=== PATIENT | female | born 1960 | race Caucasian/White ===

== ENCOUNTER 2019-06-21 11:34 | Outpatient (CLI) | payer MEDICARE, MEDICAID, SELFPAY ==
--- NOTE | 2019-06-21 | XR_ITS ---
WS: [id number] SHOULDER LEFT TECHNIQUE: 3 views of the left shoulder CLINICAL INFORMATION: LT SHOULDER PAIN COMPARISON: None. FINDINGS: Normal acromioclavicular joint. Normal glenohumeral joint. Acromion is normal in appearance. Normal g lenoid. No evidence of acute fracture dislocation. XR/XR shoulder LT min 2V* [id number] IMPRESSION: Normal left shoulder.
--- NOTE | 2019-06-21 | XR_ITS ---
WS: [id number] CERVICAL SPINE TECHNIQUE: 3 views of the cervical spine CLINICAL INFORMATION: CERVICAL RADICULOPATHY COMPARISON: None. FINDINGS: Straightening of the normal cervical lordosis with slight reversal. Normal C1-C2 articulation. No ins tability on flexion-extension. Normal prevertebral soft tissues. Normal dens. XR/XR cervical spine 4-5V [id number] IMPRESSION: Straightening of the normal cervical lordosis. No instability.
== END 2019-06-21 11:35 | disposition home or self-care (01) ==
LOC: RADWPI 12:12
PROVIDERS: Family Provider Family Medicine; PCP Family Medicine; Visit Provider Family Medicine
DX: Z76.89 Persons encountering health services in other specified circumstances (principal)

== ENCOUNTER → 2019-07-05 08:37 | Outpatient (BNVA) | payer MEDICARE, MEDICAID, SELFPAY | PROVIDERS: Family Provider Family Medicine; PCP Family Medicine; Visit Provider Nurse Practitioner | DX: F43.12 Post-traumatic stress disorder, chronic (principal); F17.218 Nicotine dependence, cigarettes, with other nicotine-induced disorders; G47.33 Obstructive sleep apnea (adult) (pediatric) | CPT/HCPCS: 99213 ==

== ENCOUNTER → 2019-12-12 08:01 | Outpatient (BNVA) | payer MEDICARE, MEDICAID, SELFPAY | PROVIDERS: Family Provider Family Medicine; PCP Family Medicine; Visit Provider Nurse Practitioner | DX: F43.12 Post-traumatic stress disorder, chronic (principal); F17.218 Nicotine dependence, cigarettes, with other nicotine-induced disorders; G47.33 Obstructive sleep apnea (adult) (pediatric); F41.1 Generalized anxiety disorder | CPT/HCPCS: 99213 ==

== ENCOUNTER → 2020-01-22 14:27 | Outpatient (BNVA) | payer OTHER, SELFPAY | PROVIDERS: Family Provider Family Medicine; PCP Family Medicine; Visit Provider Nurse Practitioner | DX: F43.12 Post-traumatic stress disorder, chronic (principal) | CPT/HCPCS: 80061; 83036 ==

== ENCOUNTER → 2020-03-08 07:38 | Outpatient (BNVA) | payer MEDICARE, MEDICAID, SELFPAY ==
[2020-01-23 13:43] VITALS: BP 140/82; BMI 44.9
== END ==
PROVIDERS: Family Provider Family Medicine; PCP Family Medicine; Visit Provider Nurse Practitioner
DX: F43.12 Post-traumatic stress disorder, chronic (principal); F17.218 Nicotine dependence, cigarettes, with other nicotine-induced disorders
CPT/HCPCS: 99213

== ENCOUNTER → 2020-06-04 08:07 | Outpatient (BNVA) | payer MEDICARE, SELFPAY ==
[2020-01-23 13:43] VITALS: BP 140/82; BMI 44.9
== END ==
PROVIDERS: Family Provider Family Medicine; PCP Family Medicine; Visit Provider Nurse Practitioner
DX: F43.12 Post-traumatic stress disorder, chronic (principal); F17.218 Nicotine dependence, cigarettes, with other nicotine-induced disorders
CPT/HCPCS: 99213

== ENCOUNTER 2020-07-24 10:41 | Outpatient (CLI) | payer MEDICARE, MEDICAID, SELFPAY ==
[2020-01-23 13:43] VITALS: BP 140/82; BMI 44.9
--- NOTE | 2020-07-24 11:30 | XR_ITS ---
WS: [id number] LEFT SHOULDER: 3 VIEW(S) TECHNIQUE: Internal and external rotation with Y view. HISTORY: chronic left shoulder pain COMPARISON: 06/21/2019 No fracture or dislocation or soft tissue abnormality. Mild degenerative changes at the AC joint. Irregularity along the acromial surface of the AC joint. XR/XR shoulder LT min 2V* [id number] IMPRESSION: Mild AC joint arthritis.
== END 2020-07-24 10:42 | disposition home or self-care (01) ==
LOC: RADWPI 10:46
PROVIDERS: PCP Family Medicine; Visit Provider Family Medicine
DX: G89.29 Other chronic pain (principal); M13.812 Other specified arthritis, left shoulder
CPT/HCPCS: 73030

== ENCOUNTER → 2020-07-26 08:23 | Outpatient (BNVA) | payer MEDICARE, MEDICAID, SELFPAY ==
[2020-01-23 13:43] VITALS: BP 140/82; BMI 44.9
== END ==
PROVIDERS: PCP Family Medicine; Visit Provider Family Medicine
DX: I10 Essential (primary) hypertension (principal); E03.9 Hypothyroidism, unspecified; J43.1 Panlobular emphysema; M25.512 Pain in left shoulder; G89.29 Other chronic pain; Z20.828 Contact with and (suspected) exposure to other viral communicable diseases; M89.49 Other hypertrophic osteoarthropathy, multiple sites; Z68.43 Body mass index [BMI] 50.0-59.9, adult; F17.299 Nicotine dependence, other tobacco product, with unspecified nicotine-induced disorders
CPT/HCPCS: 80053; 80061; 82043; 84443; 85025

== ENCOUNTER → 2020-08-09 12:51 | Outpatient (BNVA) | payer MEDICARE, MEDICAID, SELFPAY ==
[2020-01-23 13:43] VITALS: BP 140/82; BMI 44.9
== END ==
PROVIDERS: PCP Family Medicine; Visit Provider Family Medicine
DX: Z20.822 Contact with and (suspected) exposure to COVID-19 (principal)
CPT/HCPCS: 87635

== ENCOUNTER 2020-08-13 09:48 | Outpatient (CLI) | payer MEDICARE, MEDICAID, SELFPAY ==
[2020-01-23 13:43] VITALS: BP 140/82; BMI 44.9
--- NOTE | 2020-08-13 10:25 | PFTS_ITS ---
Date of Study:08/13/20 Date of Dictation: 08/14/2020 MECHANICS: Forced vital capacity (FVC) is normal.. Forced expiratory volume in one second (FEV1) is normal.. FEV1/FVC is normal. Postbronchodilator study not for performed. FLOW VOLUME LOOP: normal. . LUNG VOLUMES: Not measured DIFFUSING CAPACITY FOR CARBON MONOXIDE: Not measured . INTERPRETATION: The spirometry is normal. MTDD
== END 2020-08-13 09:49 | disposition home or self-care (01) ==
LOC: RT 09:52
PROVIDERS: PCP Family Medicine; Visit Provider Family Medicine
DX: J43.1 Panlobular emphysema (principal)
CPT/HCPCS: 94010

== ENCOUNTER → 2020-11-11 07:51 | Outpatient (BNVA) | payer MEDICARE, MEDICAID, SELFPAY ==
[2020-01-23 13:43] VITALS: BP 140/82; BMI 44.9
== END ==
PROVIDERS: PCP Family Medicine; Visit Provider Nurse Practitioner
DX: F43.12 Post-traumatic stress disorder, chronic (principal); G47.33 Obstructive sleep apnea (adult) (pediatric)
CPT/HCPCS: 99214

== ENCOUNTER → 2020-12-09 13:56 | Outpatient (BNVA) | payer MEDICARE, MEDICAID, SELFPAY ==
[2020-01-23 13:43] VITALS: BP 140/82; BMI 44.9
== END ==
PROVIDERS: PCP Family Medicine; Visit Provider Internal Medicine Pulmonary Disease
DX: J43.1 Panlobular emphysema (principal)
CPT/HCPCS: 87635

== ENCOUNTER 2020-12-12 10:21 | Outpatient (CLI) | payer MEDICARE, MEDICAID, SELFPAY ==
[2020-01-23 13:43] VITALS: BP 140/82; BMI 44.9
--- NOTE | 2020-12-12 10:34 | CT_ITS ---
WS: [id number] LDCT LUNG CANCER SCREENING TECHNIQUE: Noncontrast CT of the chest with coronal and sagittal reformatted images. CLINICAL INFORMATION: lung cancer screening COMPARISON: DLP: 54.98 mGy.cm DIvol: 1.[address] scans at [facility] use at least one of these dose optimization techniques: automat ed exposure control; mA and/or kV adjustment per patient size (includes targeted exams where dose is matched to clinical indication); or iterative reconstruction. FINDINGS: Images are degraded due to beam hardening artifact from body habitus. Mild chronic emphysematous changes. No acute pulmonary infiltrates. No focal pneumonia or pleural flu id. Slight atelectasis in the lung bases. No mediastinal or hilar lymphadenopathy. No axillary lymphadeno baylee. Small esophageal hiatal hernia. A few calcified granulomas. Calcified left left hilar nodes. CT/CT lung screening [id number] IMPRESSION: LUNG-RADS: 1-Negative FOLLOW UP: 12 Month: Continue annual screening with LDCT
--- NOTE | 2020-12-12 11:54 | PFTS_ITS ---
Date of Study:12/12/20 Date of Dictation: MECHANICS: Forced vital capacity (FVC) is normal. Forced expiratory volume in one second (FEV1) is normal. FEV1/FVC is normal. FLOW VOLUME LOOP: Mild scooping. LUNG VOLUMES: Total lung capacity (TLC) is normal. Residual volume (RV) is normal. DIFFUSING CAPACITY FOR CARBON MONOXIDE: Normal. INTERPRETATION: The prebronchodilator spirometry is normal. The lung volumes are normal. Gas exchange (DLCO) is normal. MTDD
[2020-12-12 11:57] VITALS: O2SAT 93; O2SAT 94
--- NOTE | 2020-12-12 13:47 | PFTS_ITS ---
Date of Study:12/12/20 Date of Dictation: MECHANICS: Forced vital capacity (FVC) is . Forced expiratory volume in one second (FEV1) is . FEV1/FVC is . FLOW VOLUME LOOP: . LUNG VOLUMES: Total lung capacity (TLC) is . Residual volume (RV) is . DIFFUSING CAPACITY FOR CARBON MONOXIDE: . INTERPRETATION: The pulmonary function tests are . mechanics and lung volumes. Gas exchange (DLCO) is . MTDD
== END 2020-12-12 10:22 | disposition home or self-care (01) ==
LOC: RAD 10:25
PROVIDERS: PCP Family Medicine; Visit Provider Internal Medicine Pulmonary Disease
DX: Z12.2 Encounter for screening for malignant neoplasm of respiratory organs (principal); F17.299 Nicotine dependence, other tobacco product, with unspecified nicotine-induced disorders; J98.11 Atelectasis; J30.89 Other allergic rhinitis
CPT/HCPCS: 71271; 82785; 83880; 85025; 86003; 94010; 94726; 94729; 94760

== ENCOUNTER → 2021-01-14 13:49 | Outpatient (BNVA) | payer OTHER, SELFPAY ==
[2020-01-23 13:43] VITALS: BP 140/82; BMI 44.9
== END ==
PROVIDERS: PCP Family Medicine; Visit Provider Nurse Practitioner
DX: F25.9 Schizoaffective disorder, unspecified (principal)
CPT/HCPCS: 80061; 83036

== ENCOUNTER 2021-01-27 13:03 | Outpatient (CLI) | payer BC, MEDICAID, SELFPAY ==
[2021-01-16 13:17] VITALS: BP 128/78; BMI 54.3
--- NOTE | 2021-01-27 13:00 | XR_ITS ---
WS: [id number] THORACIC SPINE TECHNIQUE: 3 views of the thoracic spine CLINICAL INFORMATION: thoracic back pain COMPARISON: None. FINDINGS: Mild thoracic curve convex left. Mild thoracic kyphosis. Mild disc space narrowing in the lower thora cic spine. No acute appearing compression fractures. XR/XR thoracic spine 2V [id number] IMPRESSION: No acute thoracic spine findings
== END 2021-01-27 13:04 | disposition home or self-care (01) ==
PROVIDERS: PCP Family Medicine; Visit Provider Family Medicine
DX: M54.6 Pain in thoracic spine (principal)
CPT/HCPCS: 72070

== ENCOUNTER → 2021-02-06 13:28 | Outpatient (BNVA) | payer BC, MEDICAID, SELFPAY ==
[2021-01-16 13:17] VITALS: BP 128/78; BMI 54.3
== END ==
PROVIDERS: PCP Family Medicine; Referring Provider Family Medicine; Visit Provider Anesthesiology Pain Medicine
DX: M79.18 Myalgia, other site (principal); M47.816 Spondylosis without myelopathy or radiculopathy, lumbar region; M54.16 Radiculopathy, lumbar region; M47.814 Spondylosis without myelopathy or radiculopathy, thoracic region; M51.36 Other intervertebral disc degeneration, lumbar region; F17.210 Nicotine dependence, cigarettes, uncomplicated; Z79.891 Long term (current) use of opiate analgesic
CPT/HCPCS: 20553; 99204; J1030; J3490

== ENCOUNTER → 2021-03-10 09:31 | Outpatient (BNVA) | payer MEDICARE, MEDICAID, SELFPAY ==
[2021-01-16 13:17] VITALS: BP 128/78; BMI 54.3
== END ==
PROVIDERS: PCP Family Medicine; Visit Provider Anesthesiology Pain Medicine
DX: M47.814 Spondylosis without myelopathy or radiculopathy, thoracic region (principal); M51.36 Other intervertebral disc degeneration, lumbar region; F17.210 Nicotine dependence, cigarettes, uncomplicated
CPT/HCPCS: 99214

== ENCOUNTER 2021-03-25 14:43 | Outpatient (CLI) | payer MEDICARE, MEDICAID, SELFPAY ==
[2021-01-16 13:17] VITALS: BP 128/78; BMI 54.3
--- NOTE | 2021-03-25 15:26 | XR_ITS ---
WS: [id number] LUMBAR SPINE FLEXION AND EXTENSION TECHNIQUE: 3 views of the lumbar spine: Lateral neutral, flexion, and extension views. CLINICAL INFORMATION: M47.816 - Spondylosis without myelopathy or radiculopathy... COMPARISON: None. FINDINGS: Slight retrolisthesis L2 on L3. No instability on the flexion and extension views. Aortic calcification. Bilateral THAs. Minimal disc space narrowing L2-L3 XR/XR lumbar spine f/e only [id number] IMPRESSION: No instability on flexion-extension
--- NOTE | 2021-03-25 15:30 | CT_ITS ---
WS: [id number] CT THORACIC SPINE TECHNIQUE: Noncontrast CT of the thoracic spine with coronal and sagittal reformatted images. CLINICAL INFORMATION: Acute thoracic pain COMPARISON: None. DLP: 1071.[address] scans at [facility] use at least one of these dose optimization techniques: automated e xposure control; mA and/or kV adjustment per patient size (includes targeted exams where dose is matc hed to clinical indication); or iterative reconstruction. FINDINGS: Images somewhat limited due to body habitus. Mild thoracic kyphosis. No acute compression. Prominent anterior hypertrophic changes in the lower th oracic spine. Mild disc space narrowing in the mid and lower thoracic spine. No acute appearing compr ession fractures. Moderate facet arthropathy lower thoracic spine. Mild congenital central canal sten osis due to short pedicles. Mild central canal stenosis T3-T4, T4-T5, T5-T6, T6-T7, T7-T8, T8-T9, T9-T10. Moderate central canal stenosis T10-T11 with facet arthropathy and impingement on the dorsal thecal s ac and thoracic cord. Mild central canal stenosis T11-T12. Multilevel mild bony foraminal narrowing worse at left T2-3, right T3-4, left T4-5, right T10-11, and bilateral T11-12. Lung bases are well aerated. Normal caliber descending thoracic aorta. CT/CT thoracic spin wo con* [id number] IMPRESSION: 1. Mild thoracic kyphosis. 2. 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 Moderate central canal stenosis at T10-11 with prominent facet arthropathy impinging the dorsal thoracic cord. 3. Multilevel mild bony foraminal narrowing described above. 4. Disc space narrowing worse at T7-T8 and T8-T9 with vacuum disc phenomenon.
== END 2021-03-25 14:44 | disposition home or self-care (01) ==
PROVIDERS: PCP Family Medicine; Visit Provider Family Medicine
DX: M47.816 Spondylosis without myelopathy or radiculopathy, lumbar region (principal); M54.6 Pain in thoracic spine; M40.294 Other kyphosis, thoracic region; M48.04 Spinal stenosis, thoracic region
CPT/HCPCS: 72120; 72128

== ENCOUNTER 2021-03-25 14:43 | Outpatient (CLI) | payer MEDICARE, MEDICAID, SELFPAY ==
[2021-01-16 13:17] VITALS: BP 128/78; BMI 54.3
--- NOTE | 2021-03-25 15:15 | CT_ITS ---
WS: [id number] CT LUMBAR SPINE TECHNIQUE: Noncontrast CT of the lumbar spine with coronal and sagittal reformatted images. CLINICAL INFORMATION: M54.16 - Radiculopathy, lumbar region COMPARISON: None. DLP: 1532.[address] scans at [facility] use at least one of these dose optimization techniques: automated e xposure control; mA and/or kV adjustment per patient size (includes targeted exams where dose is matc hed to clinical indication); or iterative reconstruction. FINDINGS: Normal lumbar alignment. No acute compression. No high-grade central canal stenosis. Mild congenital central canal stenosis with prominent dorsal epidural fat. L1-L2: Mild central canal stenosis due to prominent epidural fat and moderate facet arthropathy. Liga mentum flavum hypertrophy. Minimal annular bulging. Foramen are patent. L2-L3: Mild congenital central canal stenosis. Prominent dorsal epidural fat. Moderate facet arthropa thy with ligamentum flavum hypertrophy. No significant disc bulging. Mild bony foraminal narrowing. L3-L4: Moderate central canal stenosis mainly due to prominent dorsal epidural fat in combination wit h advanced facet arthropathy and ligamentum flavum hypertrophy. Mild bilateral foraminal narrowing. L4-L5: Moderate central canal stenosis. Advanced facet arthropathy. Prominent dorsal epidural fat. Li gament flavum hypertrophy. Mild disc osteophytic ridging with mild bilateral foraminal narrowing left greater than right. L5-S1: Disc osteophyte complex with endplate ridging. Spinal canal is patent. Advanced facet arthropa thy with ligamentum flavum hypertrophy. Mild left and no significant right foraminal narrowing. Adrenal glands are normal. Visualized pelvic bony structures: Normal. Paravertebral soft tissues: Normal. CT/CT lumbar spine wo con* [id number] IMPRESSION: 1. Normal lumbar alignment. No acute compression. 2. Mild congenital central canal stenosis with prominent dorsal epidural fat c ontributes to central canal narrowing. 3. Mild central canal stenosis L1-2 and L2-3. Moderate central canal stenosis L3-4 and L4-5. 4. Moderate to advanced facet arthropathy worse at L3-L4 and L4-L5 with ligame ntum flavum hypertrophy. 5. Multilevel mild bony foraminal narrowing described above.
== END 2021-03-25 14:44 | disposition home or self-care (01) ==
PROVIDERS: PCP Family Medicine; Visit Provider Anesthesiology Pain Medicine
DX: M54.16 Radiculopathy, lumbar region (principal); M48.061 Spinal stenosis, lumbar region without neurogenic claudication; M47.816 Spondylosis without myelopathy or radiculopathy, lumbar region; M54.6 Pain in thoracic spine; M40.294 Other kyphosis, thoracic region; M48.04 Spinal stenosis, thoracic region
CPT/HCPCS: 72120; 72128; 72131

== ENCOUNTER → 2021-04-14 14:13 | Outpatient (BNVA) | payer MEDICARE, MEDICAID, SELFPAY ==
[2021-01-16 13:17] VITALS: BP 128/78; BMI 54.3
== END ==
PROVIDERS: PCP Family Medicine; Visit Provider Anesthesiology Pain Medicine
DX: M51.16 Intervertebral disc disorders with radiculopathy, lumbar region (principal); M51.36 Other intervertebral disc degeneration, lumbar region; M99.32 Osseous stenosis of neural canal of thoracic region; M47.814 Spondylosis without myelopathy or radiculopathy, thoracic region; F17.200 Nicotine dependence, unspecified, uncomplicated
CPT/HCPCS: 99214

== ENCOUNTER → 2021-04-28 14:13 | Outpatient (BNVA) | payer MEDICARE, MEDICAID, SELFPAY ==
[2021-01-16 13:17] VITALS: BP 128/78; BMI 54.3
== END ==
PROVIDERS: PCP Family Medicine; Visit Provider Anesthesiology Pain Medicine
DX: M51.16 Intervertebral disc disorders with radiculopathy, lumbar region (principal)
CPT/HCPCS: 62323; J1040; J3490

== ENCOUNTER → 2021-05-13 08:55 | Outpatient (BNVA) | payer MEDICARE, MEDICAID, SELFPAY ==
[2021-01-16 13:17] VITALS: BP 128/78; BMI 54.3
== END ==
PROVIDERS: PCP Family Medicine; Visit Provider Anesthesiology Pain Medicine
DX: M47.814 Spondylosis without myelopathy or radiculopathy, thoracic region (principal); M99.32 Osseous stenosis of neural canal of thoracic region; M51.36 Other intervertebral disc degeneration, lumbar region; F17.200 Nicotine dependence, unspecified, uncomplicated
CPT/HCPCS: 99213; 99214

== ENCOUNTER → 2021-05-15 10:47 | Outpatient (BNVA) | payer OTHER, MEDICAID, SELFPAY ==
[2021-01-16 13:17] VITALS: BP 128/78; BMI 54.3
== END ==
PROVIDERS: PCP Family Medicine; Referring Provider Anesthesiology Pain Medicine; Visit Provider Physician Assistant
DX: M25.562 Pain in left knee (principal); M25.561 Pain in right knee; M17.12 Unilateral primary osteoarthritis, left knee
CPT/HCPCS: 73560; 73565

== ENCOUNTER 2021-07-30 13:11 | Outpatient (RCR) | payer MEDICARE, MEDICAID, SELFPAY ==
[2021-01-16 13:17] VITALS: BP 128/78; BMI 54.3
== END 2021-08-28 23:59 | disposition home or self-care (01) ==
LOC: SPT 13:11
PROVIDERS: Absent Provider Physician Assistant; PCP Family Medicine; Referring Provider Physician Assistant; Visit Provider Physician Assistant
DX: M54.50 Low back pain, unspecified (principal)
CPT/HCPCS: 97113; 97161

== ENCOUNTER 2021-08-29 06:00 | Outpatient (RCR) | payer MEDICARE, MEDICAID, SELFPAY ==
[2021-01-16 13:17] VITALS: BP 128/78; BMI 54.3
== END 2021-09-27 23:59 | disposition home or self-care (01) ==
LOC: SPT 06:00
PROVIDERS: Absent Provider Physician Assistant; PCP Family Medicine; Referring Provider Physician Assistant; Visit Provider Physician Assistant
DX: M54.50 Low back pain, unspecified (principal)
CPT/HCPCS: 97113

== ENCOUNTER 2021-09-28 06:00 | Outpatient (RCR) | payer OTHER, MEDICAID, SELFPAY ==
[2021-01-16 13:17] VITALS: BP 128/78; BMI 54.3
== END 2021-10-02 23:59 | disposition home or self-care (01) ==
LOC: SPT 06:00
PROVIDERS: Absent Provider Physician Assistant; PCP Family Medicine; Referring Provider Physician Assistant; Visit Provider Physician Assistant
DX: M54.50 Low back pain, unspecified (principal)
CPT/HCPCS: 97110

== ENCOUNTER → 2021-12-11 14:24 | Outpatient (BNVA) | payer MEDICAID, OTHER, SELFPAY ==
[2021-01-16 13:17] VITALS: BP 128/78; BMI 54.3
== END ==
PROVIDERS: PCP Family Medicine; Visit Provider Nurse Practitioner
DX: F25.9 Schizoaffective disorder, unspecified (principal)
CPT/HCPCS: 80061; 83036

== ENCOUNTER 2023-03-17 23:43 | Inpatient (IN) | payer MEDICARE, MEDICAID, SELFPAY ==
[2021-12-18 13:56] VITALS: BP 105/68; BMI 54.3
[2023-03-17 23:44] VITALS: BP 164/96; PULSE 96; RESP 23; TEMP 36.7; O2SAT 94; BMI 53.1
--- NOTE | 2023-03-17 23:44 | CTR_ITS ---
PROCEDURE INFORMATION: Exam: CT Abdomen And Pelvis With Contrast Exam date and time: 03/18/2023 12:38 AM Age: 62 years old Clinical indication: Abdominal pain; Flank; Other: Bilateral; Prior surgery; Surgery date: 6+ months; Surgery type: Hernia; Additional info: Abd pain TECHNIQUE: Imaging protocol: Computed tomography of the abdomen and pelvis with contrast. Radiation optimization: All CT scans at this facility use at least one of these dose optimization techniques: automated exposure control; mA and/or kV adjustment per patient size (includes targeted exams where dose is matched to clinical indication); or iterative reconstruction. Contrast material: OMNI 350; Contrast volume: 160 ml; Contrast route: INTRAVENOUS (IV); REPORTING DATA: Count of CT and Cardiac NM exams in prior 12 months: This patient has received 0 known CTs and 0 known cardiac nuclear medicine studies in the 12 months prior to the current study. COMPARISON: CT lumbar spine wo con* [id number] 03/25/2021 3:20 PM RADIATION DOSE METRICS: Total DLP (mGy-cm): 1361.04 FINDINGS: Lungs: Mild areas of lung base atelectasis or scarring. Heart: The heart is mildly enlarged. Diaphragm: Tiny hiatal hernia. Liver: Liver is large and steatotic. No enhancing mass. Gallbladder and bile ducts: Between the gallbladder and the duodenum, there is mild free fluid and fat stranding on series 13, image 52. Pancreas: Unremarkable with no suspicious mass. No ductal dilation. Spleen: The spleen is not enlarged. No suspicious enhancing mass is noted. Adrenal glands: Minimal right adrenal calcification. No suspicious mass. Kidneys and ureters: Tiny bilateral renal cysts. No enhancing renal mass or hydronephrosis. Stomach and bowel: No small bowel dilation. Appendix: No evidence of appendicitis. Intraperitoneal space: Unremarkable. No free air. No suspicious fluid collection. Vasculature: Advanced diffuse vascular calcification noted. Lymph nodes: No enlarged lymph nodes. Urinary bladder: Unremarkable as visualized. Reproductive: Unremarkable as visualized. Bones/joints: Bilateral hip arthroplasties. Mild spine DJD. Soft tissues: No acute or suspicious finding noted. CT/CT abdomen pelvis w con* [id number] IMPRESSION: 1. Right upper quadrant free fluid and mild fat stranding as described, which may be due to cholecystitis or duodenitis, less likely pancreatitis given location. Advise correlation. Consider ultrasound gallbladder and GI consult. 2. No small bowel obstruction, abscess or free air. 3. Multiple chronic findings above. COMMENTS: Consistent with the [employer]'s Incidental Findings Committee white paper (J Am Ayaka Radiol 2018): Any incidental renal lesion less than 1 cm or classified as too small to characterize, or any incidental cystic renal lesion characterized as simple-appearing, is likely benign. No follow-up imaging is recommended for these lesions per consensus recommendations based on imaging criteria.
--- NOTE | 2023-03-17 23:47 | ECG_ITS ---
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 Measurements Intervals [place] Rate: 88 P: 149 FL: 151 QRS: 25 QRSD: 90 T: -73 QT: 373 QTc: 452 Interpretive Statements ECTOPIC ATRIAL RHYTHM MODERATE ST DEPRESSION [0.05+ mV ST DEPRESSION] ABNORMAL QRS-T ANGLE [QRS-T AXIS DIFFERENCE > 60] No previous ECG available for comparison Electronically Signed On 03-19-2023 0:46:44 CDT by Shekhar Gonzalez M.D. [email or web address] [facility].[id number]
--- NOTE | 2023-03-17 23:51 | W.ED.ABDPA2 ---
HPI - Abdominal Pain General: Chief Complaint: Abdominal Pain Stated Complaint: epigastric pain Time Seen by Provider: 03/17/23 23:44 Source: patient and EMS Mode of arrival: EMS Limitations: no limitations History of Present Illness: 62-year-old female states that she started having severe epigastric abdominal pain that started roughly an hour ago states pain is a 10 out of 10 she had no vomiting no diarrhea states she does take ibuprofen quite a bit of amount. She denies any known blood in her stool and denies any vomiting she denies any worsening proving factors Associated Symptoms: Denies chills, diarrhea, dysuria, fever(s), nausea and vomiting Review of Systems Const: Denies: fever(s), chills, body aches or change in appetite Eyes: Denies: eye discomfort ENMT: Denies: throat pain or dental pain Card: Denies: chest pain Resp: Denies: dyspnea GI: Reports: abdominal pain; Denies: nausea, vomiting or diarrhea : Denies: dysuria Musc: Denies: neck pain or back pain Skin/Breast: Denies: rash Neuro: Denies: headache(s) PFSH ED PFSH: Medical History Chronic back pain Chronic knee pain Chronic pain of both shoulders COPD (chronic obstructive pulmonary disease) Hypertension Hypothyroid Manic depression Nicotine dependence, cigarettes, with other nicotine-induced disorders Non compliance w medication regimen Personality disorder Post-traumatic stress disorder, chronic Psychiatric care PTSD (post-traumatic stress disorder) Sleep apnea, unspecified Surgical History History of arthroplasty of right shoulder History of bilateral tubal ligation History of tympanoplasty of left ear Hx of bilateral hip replacements Hx of section Family History Other CAD (coronary artery disease) Cancer Hyperlipidemia Hypertension Osteoporosis Stroke Social History Smoking and tobacco/nicotine status: current every day tobacco/nicotine user cigarettes Years cigarettes smoked: 46 [ Other cigarette details: [id number]] and e-cigarettes E-Cigarette Details: vaporizer device Quit status (tobacco/nicotine): considering quitting Second hand smoke exposure: Yes Alcohol intake: former Substance/Drug Use: never Adopted: No Caregiver/support person: Yes (house keeper) Lives independently: Yes Household members: none Housing: Apartment Marital status: Marital status details: for 42 years Number of children: 2 Number of grandchildren: 6 Highest education level completed: GED or Equivalent service: No Current occupational status: disabled Pets and animals: Yes Pets & animals: dog(s) Pets & animal details: 1 [facility] Leisure activites: reading and other Leisure activities details: watches tv Sexually active: No Do you think of yourself as: Straight/Heterosexual Current gender identity: Female Shobha/Christian: Zoroastrian Special shobha needs: No Agree to transfusion: Yes Female Reproductive History: Para: 2 Spontaneous abortions: No Physical Exam Const: COMMON NORMALS: patient oriented x3 HENMT: COMMON NORMALS: normocephalic and atraumatic HEAD & SCALP: normocephalic and atraumatic Eye: COMMON NORMALS: Equal, round and reactive pupils present and EOMs intact bilaterally PUPIL: Yes Equal, round and reactive pupils present Neck/C-Spine: COMMON NORMALS: full ROM and supple Chest: COMMONS NORMALS: normal inspection of the chest and normal palpation of entire chest wall Resp: COMMON NORMALS: normal respiratory effort, No retractions, No use of accessory muscles and clear to auscultation bilaterally AUSCULTATION: clear to auscultation bilaterally Cardio: COMMON NORMALS: regular rate, regular rhythm and No murmurs present (Cardio) RATE: regular rate RHYTHM: regular rhythm GI: COMMON NORMALS: Normal to inspection, nondistended, normoactive bowel sounds present, Soft to palpation and no masses PALPATION: Yes Soft to palpation OTHER: diffuse tenderness Extremity: COMMON NORMALS: normal to inspection and full ROM Neuro: COMMON NORMALS: patient oriented x3, moves all extremities and no focal motor deficits Psych: COMMON NORMALS: mental status grossly normal, Normal thought process present and cooperative THOUGHT PROCESS: Normal thought process present Skin: COMMON NORMALS: no rashes or lesions noted and no wounds GENERAL SKIN EXAM: no rashes or lesions noted Course Vital Signs: Vital signs: Vital Signs Temperature 98.1 F 03/17/23 23:44 Pulse Rate 88 03/18/23 02:05 Respiratory Rate 16 03/18/23 02:05 Blood Pressure 138/83 03/18/23 02:05 Pulse Oximetry 95 03/18/23 02:05 Oxygen Delivery Me thod Non-Rebreather 03/18/23 01:37 Oxygen Flow Rate 15 03/18/23 01:07 MDM - Abdominal Pain Medical Decision Making Patient presents with abdominal pain she does have pancreatitis likely gallstone pancreatitis gallbladder wall slightly thickened could be due to the pancreatitis we will start antibiotics patient's pains improved have spoke to surgeon along with hospitalist and will admit Medical Records I reviewed the patient's medical records. Lab Data I reviewed the patient's lab results. 03/18/23 00:03 03/18/23 00:03 Labs/Radiology: Radiology Impressions Abdomen/Pelvis CT 03/17/23 23:44 IMPRESSION: 1. Right upper quadrant free fluid and mild fat stranding as described, which may be due to cholecystitis or duodenitis, less likely pancreatitis given location. Advise correlation. Consider ultrasound gallbladder and GI consult. 2. No small bowel obstruction, abscess or free air. 3. Multiple chronic findings above. COMMENTS: Consistent with the [place] [employer]'s Incidental Findings Committee white paper (J Am Ayaka Radiol 2018): Any incidental renal lesion less than 1 cm or classified as too small to characterize, or any incidental cystic renal lesion characterized as simple-appearing, is likely benign. No follow-up imaging is recommended for these lesions per consensus recommendations based on imaging criteria. Chest X-Ray 03/18/23 00:08 IMPRESSION: 1. Chronic findings above, no consolidation or pneumothorax. 2. Abdomen/pelvis CT pending. Laboratory Results WBC 13.94 10^3/uL (3.29-11.43) H 03/18/23 00:03 RBC 4.55 10^6/uL (3.85-5.65) 03/18/23 00:03 Hgb 14.50 g/dL (11.27-16.99) 03/18/23 00:03 Hct 44.7 % (36-47) 03/18/23 00:03 MCV 98.2 fl (85-98) H 03/18/23 00:03 MCH 31.9 pg (27-33) 03/18/23 00:03 MCHC 32.4 g/dL (30-55) 03/18/23 00:03 RDW 13.4 % (12.1-15.1) 03/18/23 00:03 Plt Count 272 10^3/cmm (157-399) 03/18/23 00:03 MPV 10.9 fL (7.4-10.4) H 03/18/23 00:03 Neut % (Auto) 85.2 % 03/18/23 00:03 Lymph % (Auto) 7.0 % 03/18/23 00:03 Graham % (Auto) 6.2 % 03/18/23 00:03 Eos % (Auto) 0.6 % 03/18/23 00:03 Baso % (Auto) 0.3 % 03/18/23 00:03 Neut # (Auto) 11.88 10^3/uL (1.8-7.7) H 03/18/23 00:03 Lymph # (Auto) 1.0 10^3/uL (0.8-4.8) 03/18/23 00:03 Graham # (Auto) 0.9 10^3/uL (0.2-0.9) 03/18/23 00:03 Eos # (Auto) 0.1 10^3/uL (0.0-0.8) 03/18/23 00:03 Baso # (Auto) 0.0 10^3/uL (0.0-0.1) 03/18/23 00:03 Nucleated RBC % (auto) 0 % 03/18/23 00:03 Nucleated RBCs # 0.0 /100WBC 03/18/23 00:03 Sodium 141 mmol/L (136-145) 03/18/23 00:03 Potassium 3.6 mmol/L (3.5-5.1) 03/18/23 00:03 Chloride 103 mmol/L (98-107) 03/18/23 00:03 Carbon Dioxide 25 mmol/L (22-29) 03/18/23 00:03 Anion Gap 16.6 (5-19) 03/18/23 00:03 BUN 16 mg/dL (8-23) 03/18/23 00:03 Creatinine 0.6 mg/dL (0.5-0.9) 03/18/23 00:03 GFR Calculation 101.0 mL/min (90-130) 03/18/23 00:03 Glucose 192 mg/dL (65-115) H 03/18/23 00:03 Calculated Osmolality 298 mOsm/kg (285-295) H 03/18/23 00:03 Lactic Acid 1.8 mmol/L (0.5-2.2) 03/18/23 00:03 Calcium 9.3 mg/dL (8.5-10.5) 03/18/23 00:03 Total Bilirubin 0.5 mg/dL (0.15-1.2) 03/18/23 00:03 AST 103 U/L (0-32) H 03/18/23 00:03 ALT 94 U/L (0-33) H 03/18/23 00:03 Alkaline Phosphatase 135 U/L (35-105) H 03/18/23 00:03 Total Protein 7.5 g/dL (6.6-8.7) 03/18/23 00:03 Albumin 4.2 g/dL (3.5-5.2) 03/18/23 00:03 Globulin 3.3 g/dL (1.3-4.6) 03/18/23 00:03 Lipase 7406 U/L (13-60) H 03/18/23 00:03 Urine Color Yellow (Yellow) 03/18/23: Urine Appearance Clear (CLEAR) 03/18/23: Urine pH 5 (5-7) 03/18/23: Ur Specific [place] 1.025 (1.005-1.030) 03/18/23 00: Urine Protein 1+ (Negative) H 03/18/23 00: Urine Glucose (UA) Norm (Normal) 03/18/23: Urine Ketones Negative (Negative) 03/18/23: Urine Blood 2+ (Negative) H 03/18/23: Urine Nitrate Negative (Negative) 03/18/23: Urine Bilirubin 1+ (Negative) H 03/18/23: Urine Urobilinogen 1 mg/dL (Negative) H 03/18/23: Ur Leukocyte Esterase Negative (Negative) 03/18/23: Urine RBC 5-10 /hpf (0-2) H 03/18/23 00:27 Urine WBC None /hpf (0-5) 03/18/23 00: Ur Squamous Epith Cells 5-10 /hpf (0-5) H 10/19/23 00:27 Amorphous Sediment Not Reportable 03/18/23 00:27 Urine Bacteria Trace /hpf (NONE) 03/18/23 00:27 Urine Mucus 2+ /hpf 03/18/23 00:27 All radiology interpretation(s) finalized by discharge Discharge Plan Discharge Patient Disposition: Admitted As Inpatient Clinical Impression: Pancreatitis, Gallstone Condition: Stable Coding Level of Care Code ED Respiratory Care Faculty for Pierre Kelly
[2023-03-17] MEDS: ondansetron 2 mg/ML SDV 2 mL 4 MG IVP (23:56)
[2023-03-17] MEDS: HYDROmorphone 1 mg/mL INJ 1 mL IVP (23:56)
[2023-03-18] VITALS (15 sets, daily range): BP systolic 109–171; BP diastolic 62–116; PULSE 88–110; RESP 16–24; TEMP 36.7–37.6; O2SAT 85–99
--- NOTE | 2023-03-18 00:08 | XRR_ITS ---
PROCEDURE INFORMATION: Exam: XR Chest Exam date and time: 03/18/2023 12:13 AM Age: 62 years old Clinical indication: Shortness of breath; Prior surgery; Surgery date: 6+ months; Surgery type: RT shoulder; Additional info: Abd pain TECHNIQUE: Imaging protocol: Radiologic exam of the chest. Views: 1 view. COMPARISON: CT lung screening [id number] 12/12/2020 11:10 AM FINDINGS: Lungs: Mild areas of bibasilar atelectasis or scarring. No definite pneumonia. Pleural spaces: Unremarkable. No pleural effusion. No pneumothorax. Heart/Mediastinum: The heart is large. Bones/joints: Unremarkable. XR/XR chest 1V portable [id number] IMPRESSION: 1. Chronic findings above, no consolidation or pneumothorax. 2. Abdomen/pelvis CT pending.
[2023-03-18 00:15] LABS: Basophils % 0.3 %; Eosinophils # 0.1 10^3/uL (0.0-0.8); Eosinophils % 0.6 %; Hematocrit 44.7 % (36-47); Mean Corpuscular HGB Conc 32.4 g/dL (30-55); Mean Corpuscular Hemoglobin 31.9 pg (27-33); Mean Corpuscular Volume 98.2 fl (85-98); Mean Platelet Volume 10.9 fL (7.4-10.4); Monocytes # 0.9 10^3/uL (0.2-0.9); Monocytes % 6.2 %; Neutrophils # 11.88 10^3/uL (1.8-7.7); Neutrophils % 85.2 %; Nucleated Red Blood Cells % 0 %; Platelet Count 272 10^3/cmm (157-399); Red Blood Count 4.55 10^6/uL (3.85-5.65); Red Cell Distribution Width 13.4 % (12.1-15.1); White Blood Count 13.94 10^3/uL (3.29-11.43)
[2023-03-18 00:26] LABS: Lactic Sepsis W/Reflex 1.8 mmol/L (0.5-2.2)
[2023-03-18 00:27] LABS: Alanine Aminotransferase 94 U/L (0-33); Albumin Level 4.2 g/dL (3.5-5.2); Alkaline Phosphatase 135 U/L (35-105); Anion Gap 16.6 (5-19); Aspartate Amino Transferase 103 U/L (0-32); Blood Urea Nitrogen 16 mg/dL (8-23); Calcium 9.3 mg/dL (8.5-10.5); Carbon Dioxide 25 mmol/L (22-29); Chloride 103 mmol/L (98-107); Globulin 3.3 g/dL (1.3-4.6); Glucose 192 mg/dL (65-115); Osmolality Calculated 298 mOsm/kg (285-295); Potassium 3.6 mmol/L (3.5-5.1); Sodium 141 mmol/L (136-145); Total Bilirubin 0.5 mg/dL (0.15-1.2); Total Protein 7.5 g/dL (6.6-8.7)
[2023-03-18 00:55] LABS: Add Urine Microscopic? YES; Bilirubin Urine 1+ (Negative); Blood Urine 2+ (Negative); Glucose Urine UA Norm (Normal); Ketones Urine Negative (Negative); Leukocyte Esterase Urine Negative (Negative); Nitrate Urine Negative (Negative); Protein Urine 1+ (Negative); Specific Gravity, Urine 1.025 (1.005-1.030); Urine Appearance Clear (CLEAR); Urine Color Yellow (Yellow); Urobilinogen Urine 1 mg/dL (Negative); pH Urine 5 (5-7)
[2023-03-18 00:56] LABS: Add Urine Culture? No; Bacteria Urine TRACE /hpf; Mucus Urine 2+ /hpf
[2023-03-18 00:59] LABS: Lipase 7406 U/L (13-60)
[2023-03-18] MEDS: iohexol 350 mg/mL 500 mL Btl (per mL) IV (01:04)
--- NOTE | 2023-03-18 01:10 | USR_ITS ---
PROCEDURE INFORMATION: Exam: US Abdomen, Limited; Right Upper Quadrant Exam date and time: 03/18/2023 1:55 AM Age: 62 years old Clinical indication: Abdominal pain; Patient HX: Paroxysmal ruq pain x 2 hours. Morbid obesity TECHNIQUE: Imaging protocol: Real time ultrasound of the abdomen with image documentation. Limited exam focused on the right upper quadrant. COMPARISON: CT abdomen pelvis w con* [id number] 03/18/2023 12:38 AM FINDINGS: Liver: Liver is large and echogenic; deeper portions and vascular structures are obscured. It measures 19 cm. Gallbladder: Multiple gallstones are visualized. The wall measures 6 mm. Positive Zambrano sign. Biliary ducts: 9 mm CBD. Pancreas: Pancreas is not seen due to bowel gas. Right kidney: Right kidney shows no solid mass or hydronephrosis. Tiny right kidney stones. US/US gall bladder [id number] IMPRESSION: 1. Gallstones and gallbladder wall thickening with positive Zambrano sign. Cholecystitis is possible. 2. 9 mm dilated CBD. Follow with GI as well. 3. Liver is large and very fatty. 4. Minimal right nephrolithiasis.
[2023-03-18] MEDS: piperacillin-tazobactam 3.375 GM in sodium chloride 0.9% (plus) 50 ML IV ×2 (02:37→13:13)
--- NOTE | 2023-03-18 04:08 | P.HP_ITS ---
Providers/Chief Complaint Admitting Physician: Zari Cabrera MD Primary Care Provider: Carla Smith DO Chief Complaint: epigastric pain History of Present Illness Neetu Herring is a 62 year old female with history of fibromyalgia degenerative joint disease active smoker 1 pack per week asthma/copd was BIB EMS with c/o severe abdominal pain associated with nausea and vomiting siince this morning. As per the patient abdominal pain was generalised, crampy 10/10, no agg ravating or relieving factors and associated with nausea and vomitingx2. there is no history of fever, cold, cough, chest pain diarrhea or urinary complaints. She has a history of similar complaint 2 years ago but was not this severe and was managed at home. Review of Systems Narrative: As per HPI Medications/Allergies Home Medications Medication Instructions Recorded Confirmed Last Taken Type fexofenadine 180 mg tablet 360 mg PO BID 06/28/20 04/13/22 Unknown History (Kierra Allergy) glucosamine 750 vi-ouerwmnztou-ghr 1 tab PO BID 06/28/20 04/13/22 Unknown History no1 644 mg-C 30 mg-michael 1 mg tablet (Osteo Bi-Flex Triple Strength) cholecalciferol (vitamin D3) 50 50 mcg PO DAILY 11/21/20 04/13/22 Unknown History mcg (2,000 unit) capsule albuterol sulfate 90 mcg/actuation 2 inh inhalation 6XD PRN shortness 02/18/21 04/13/22 Unknown Rx aerosol inhaler (ProAir HFA) of breath or wheezing #8.5 grams ibuprofen 800 mg tablet 800 mg PO Q8H PRN 04/14/21 04/13/22 Unknown History melatonin 10 mg capsule 10 mg PO DAILY 12/11/21 04/13/22 Unknown History paroxetine HCl 30 mg tablet (Paxil) 30 mg PO DAILY #30 tabs 03/16/22 04/13/22 Unknown Rx prazosin 1 mg capsule 3 mg PO .HS #90 caps 03/16/22 04/13/22 Unknown Rx topiramate 50 mg tablet (Topamax) 50 mg PO BID #60 tabs 03/16/22 04/13/22 Unknown Rx permethrin 5 % topical cream 1 applic topical Q14D 2 doses #60 04/13/22 04/13/22 Unknown Rx grams sulfamethoxazole 800 1 tab PO BID 7 days #14 tabs 04/13/22 04/13/22 Unknown Rx mg-trimethoprim 160 mg tablet (Bactrim DS) Allergies Allergy/AdvReac Type Severity Reaction Status Date / Time codeine Allergy Unknown Verified 04/13/22 14:48 oak Allergy breathing Verified 04/13/22 14:48 concerns PFSH Acute PFSH: Medical History Chronic back pain Chronic knee pain Chronic pain of both shoulders COPD (chronic obstructive pulmonary disease) Hypertension Hypothyroid Manic depression Nicotine dependence, cigarettes, with other nicotine-induced disorders Non compliance w medication regimen Personality disorder Post-traumatic stress disorder, chronic Psychiatric care PTSD (post-traumatic stress disorder) Sleep apnea, unspecified Surgical History History of arthroplasty of right shoulder History of bilateral tubal ligation History of tympanoplasty of left ear Hx of bilateral hip replacements Hx of section Family History Other CAD (coronary artery disease) Cancer Hyperlipidemia Hypertension Osteoporosis Stroke Social History Smoking and tobacco/nicotine status: current every day tobacco/nicotine user cigarettes Years cigarettes smoked: 46 [ Other cigarette details: [id number]] and e-cigarettes E-Cigarette Details: vaporizer device Quit status (tobacco/nicotine): considering quitting Second hand smoke exposure: Yes Alcohol intake: former Substance/Drug Use: never Adopted: No Caregiver/support person: Yes (house keeper) Lives independently: Yes Household members: none Housing: Apartment Marital status: Marital status details: for 42 years Number of children: 2 Number of grandchildren: 6 Highest education level completed: GED or Equivalent service: No Current occupational status: disabled Pets and animals: Yes Pets & animals: dog(s) Pets & animal details: 1 [facility] Leisure activites: reading and other Leisure activities details: watches tv Sexually active: No Do you think of yourself as: Straight/Heterosexual Current gender identity: Female Shobha/Pentecostalism: Restoration Special shobha needs: No Agree to transfusion: Yes Female Reproductive History: Para: 2 Spontaneous abortions: No Vitals/I&O/Wt Last Vital Signs Temp 98.1 F 10/19/23 03:20 Pulse 88 03/18/23 03:20 Resp 16 03/18/23 03:20 BP 138/83 03/18/23 03:20 Pulse Ox 95 03/18/23 03:20 O2 Del Method Room Air 03/18/23 03:47 O2 Flow Rate 15 03/18/23 01:07 03/17/23 03/17/23 03/18/23 14:59 22:59 06:59 Intake Total 50 / 50 Balance 50 / 50 Weight last 48 hrs Weight 136.078 kg Physical Exam Narrative: She is alert awake oriented x3, not in acute distress, morbidly obese and SOB at rest, which is her usual as per the patient. Chest clear to ascultation B/L CVS normal heart sounds, no murmurs. Abdomen soft, distended, tender diffusely but more in RUQ and epigastric area, diminished bowel sounds. Ext B/L lower extremity 1+ pitting edema present. Right foot and left lower leg eczema seen. Data 03/18/23 00:03 03/18/23 00:03 CT Abd/Pel: Radiologist's impression: FINDINGS: Lungs: Mild areas of lung base atelectasis or scarring. Heart: The heart is mildly enlarged. Diaphragm: Tiny hiatal hernia. Liver: Liver is large and steatotic. No enhancing mass. Gallbladder and bile ducts: Between the gallbladder and the duodenum, there is mild free fluid and fat stranding on series 13, image 52. Pancreas: Unremarkable with no suspicious mass. No ductal dilation. Spleen: The spleen is not enlarged. No suspicious enhancing mass is noted. Adrenal glands: Minimal right adrenal calcification. No suspicious mass. Kidneys and ureters: Tiny bilateral renal cysts. No enhancing renal mass or hydronephrosis. Stomach and bowel: No small bowel dilation. Appendix: No evidence of appendicitis. Intraperitoneal space: Unremarkable. No free air. No suspicious fluid collection. Vasculature: Advanced diffuse vascular calcification noted. Lymph nodes: No enlarged lymph nodes. Urinary bladder: Unremarkable as visualized. Reproductive: Unremarkable as visualized. Bones/joints: Bilateral hip arthroplasties. Mild spine DJD. Soft tissues: No acute or suspicious finding noted. 1. ? Right upper quadrant free fluid and mild fat stranding as described, which may be due to cholecystitis or duodenitis, less likely pancreatitis given location. Advise correlation. Consider ultrasound gallbladder and GI consult. 2. ? No small bowel obstruction, abscess or free air. 3. ? Multiple chronic findings above. ? CXR: Radiologist's impression: no acute findings US: Radiologist's impression: USG abdomen IMPRESSION: 1. ? Gallstones and gallbladder wall thickening with positive Zambrano sign. Cholecystitis is possible. 2. ? 9 mm dilated CBD. Follow with GI as well. 3. ? Liver is large and very fatty. 4. ? Minimal right nephrolithiasis. EKG 1: EKG computer-generated impression: ectopic atrial rhythm will repeat EKG A&P Assessment and plan (1) Pancreatitis: (2) Cholecystitis: (3) Encounter for smoking cessation counseling: Plan 62 year old female with history of fibromyalgia degenerative joint disease active smoker 1 pack per week asthma/copd was BIB EMS with c/o severe abdominal pain associated with nausea and vomiting siince this morning and found to have lipase of 7400, CT abdomen c/w cholecystitis and pancreatitis. Acute cholecystitis and pancreatitis likely secondary to gall bladder stone/ CBD stone, CBD dilatation seen on CT abdomen and pelvis. Surgery consult done in ER, to see patient in am for possible MRCP vs surgery. will do IV zosyn 3.375mg q8h for now IV fluids normal saline at 75ml/hr IV dilaudid 0.4mg q4h prn for pain control.. NPO COPD/Asthma- will restart on spiriva and albuterol inhaler which she was using few days ago. counselled and educated about smoking cessation. DJD and fibromyalgia-stable- will do iv dilaudid for pain as needed. Iv pantoprazole 40mg bid for stress ulcer PPx ICs for DVT PPx She is full code for now as per the discussion with the patient, need to call her SEC[employer]OL ROOM OFFICER Lisa who she nominated as her next of kin for any further enquiries. Attestations Medical Necessity Statement*: She needs more than 2 days of hospitalization for management of acute cholecysti tis and pancreatitis with IV fluids, antibiotics, surgery consult and probable MRCP. Time Spent in Patient Care: 30 minutes Coding Level of Care Code Acute Code for Chg Fwd Diagnoses Pancreatitis K85.90 Cholecystitis K81.9 Encounter for smoking cessation counseling Z71.6 Time Spent (min) 30
[2023-03-18] MEDS: sodium chloride 0.9% 1,000 ML 75 ML IV (05:21)
[2023-03-18] MEDS: pantoprazole 40 mg SDV IVP ×2 (05:22→15:31)
[2023-03-18] MEDS: HYDROmorphone 1 mg/mL INJ 1 mL 0.4 MG IVP ×2 (05:32→10:27)
[2023-03-18] MEDS: albuterol 2.5 mg/3 mL Neb INHALATION ×2 (08:04→14:30)
[2023-03-18] MEDS: cholecalciferol (vitamin D3) 1,000 unit Tablet 2000 UNIT PO (08:17)
--- NOTE | 2023-03-18 08:30 | PC.PHAR ---
PT STATES SHE TAKES CARE OF HER OWN MEDICATIONS-PT STATES SHE TAKES NO RX MEDICATIONS STATES SHE IS ONLY TAKING OTC MEDS
--- NOTE | 2023-03-18 08:31 | MR_ITS ---
WS: [id number] MRCP (MAGNETIC RESONANCE CHOLANGIOPANCREATOGRAPHY) HISTORY: dilated common bile duct, pancreatitis and gallstones COMPARISON: Gallbladder ultrasound 03/18/2023 TECHNIQUE: Multiple sequences are performed to evaluate the intra and extrahepatic ducts. Study is overall limited by the patient's body habitus and inability to hold her breath. There are nu merous stones within the gallbladder. There are very small stones layering in the gallbladder. The ga llbladder is mildly hydropic. There are numerous filling defects within the common bile duct. At leas t 4 stones are identified within the common bile duct but I suspect there are probably more. Common b ile duct measures 7 mm. No central hepatic duct dilatation. Pancreatic duct does not appear dilated. No edema surrounding the pancreas. There is a small amount o f pericholecystic fluid around the neck of the gallbladder. Fluid extends adjacent to the duodenal C- loop. Liver is enlarged with hepatic steatosis. No hepatic mass is identified. Subcentimeter cortical cyst RIGHT kidney. IMPRESSION: 1. Quality of this examination is compromised by patient's body habitus. 2. Cholelithiasis. Numerous stones in the gallbladder. 3. Choledocholithiasis. There are numerous very small, subcentimeter stones within the common bile du ct. Common bile duct is measuring just greater than normal in size at 7 mm. 4. Ascites and soft tissue edema adjacent to the gallbladder neck extending along the duodenal C-loop . 5. No pancreatic duct dilatation. 6. No intrahepatic duct dilatation.
[2023-03-18 10:58] LABS: Thyroid Stimulating Hormone 1.66 uIU/mL (0.27-4.20)
[2023-03-18 10:59] LABS: Procalcitonin 0.12 ng/mL (0-0.5)
[2023-03-18 11:10] LABS: Iron 62 ug/dL (37-145); Percent Saturation 19.9 % (20-50); Total Iron Binding Capacity 311 mcg/dl; Unsaturated Iron Binding 249 ug/dL (112-347)
[2023-03-18] MEDS: LORazepam 0.5 mg Tablet PO (11:43)
--- NOTE | 2023-03-18 13:26 | P.CONIM_ITS ---
Providers/Reason For Consult Consulting Physician/Specialty*: Dr. Gordon Odell DO/General surgery Reason for Consult*: Abdominal pain Attending Physician: Nahid Rowland MD Primary Care Provider: Carla Smith DO History of Present Illness History of Present Illness Neetu Herring is a 62 year old female who presents to the hospital with a 1 day history of epigastric abdominal pain that radiates to her back. The pain is sharp severe and constant. Eating and palpation make the pain worse. Nothing seems to make the pain better. She does report nausea but denies any emesis. Denies any diarrhea, constipation, hematochezia and/or melena. CT done in the ER showed inflammation around the duodenum pancreas and gallbladder. Gallbladder ultrasound showed an area of gallbladder wall thickening and a common bile duct of 9 mm. MRCP could not be performed overnight and therefore was performed this morning. MRCP shows numerous calculi in the common bile duct. Lipase is over 7000. Bilirubin is within normal limits Review of Systems General: Reports: 10 or more systems reviewed and unremarkable except in HPI and below Medications/Allergies Home Medications Medication Instructions Recorded Confirmed Last Taken Type cholecalciferol (vitamin D3) 25 1,000 unit PO Q7D 03/18/23 03/18/23 Unknown History mcg (1,000 unit) tablet (Vitamin D3) fexofenadine 60 mg tablet (Kierra 120 mg PO QAM 03/18/23 03/18/23 Unknown History Allergy) glucosamine 750 no-muruhwrxxer-wen 1 tab PO BID 03/18/23 03/18/23 Unknown History no1 644 mg-C 30 mg-michael 1 mg tablet (Osteo Bi-Flex Triple Strength) ibuprofen 200 mg tablet 800 mg PO BID 03/18/23 03/18/23 Unknown History ketotifen fumarate 0.025 % (0.035 1 drp ophthalmic (eye) BID PRN Eye 03/18/23 03/18/23 Unknown History %) eye drops (Allergy Eye Irritation (ketotifen)) Allergies Allergy/AdvReac Type Severity Reaction Status Date / Time codeine Allergy Unknown Verified 03/18/23 08:19 oak Allergy breathing Verified 03/18/23 08:19 concerns Current Medications Generic Name Dose Route Start Last Admin Trade Name Freq PRN Reason Stop Dose Admin Albuterol Sulfate 2.5 mg 03/18/23 08:00 03/18/23 08:04 Albuterol 2.5 Mg/3 Ml Neb INHALATION 2.5 mg Q6H.RESP JEAN PIERRE Administration Sodium Chloride 1,000 mls @ 75 mls/hr 03/18/23 04:15 03/18/23 05:21 Sodium Chloride 0.9% IV 75 mls/hr .[id number] JEAN PIERRE Administration Piperacillin Sod/Tazobactam 50 mls @ 12.5 mls/hr 03/18/23 10:30 03/18/23 13:13 Sod 3.375 gm/ Sodium Chloride IV 12.5 mls/hr Q8H JEAN PIERRE Administration Protocol Pantoprazole Sodium 40 mg 03/18/23 04:15 03/18/23 05:22 Pantoprazole 40 Mg Sdv IVP 40 mg Q12H JEAN PIERRE Administration Vitamin D 2,000 unit 03/18/23 09:00 03/18/23 08:17 Cholecalciferol (Vitamin D3) 1,000 Unit Tablet PO 2,000 unit DAILY JEAN PIERRE Administration PFSH Acute PFSH: Medical History Chronic back pain Chronic knee pain Chronic pain of both shoulders COPD (chronic obstructive pulmonary disease) Hypertension Hypothyroid Manic depression Nicotine dependence, cigarettes, with other nicotine-induced disorders Non compliance w medication regimen Personality disorder Post-traumatic stress disorder, chronic Psychiatric care PTSD (post-traumatic stress disorder) Sleep apnea, unspecified Surgical History History of arthroplasty of right shoulder History of bilateral tubal ligation History of tympanoplasty of left ear Hx of bilateral hip replacements Hx of section Family History Other CAD (coronary artery disease) Cancer Hyperlipidemia Hypertension Osteoporosis Stroke Social History Smoking and tobacco/nicotine status: current every day tobacco/nicotine user cigarettes Years cigarettes smoked: 46 [ Other cigarette details: [id number]] and e-cigarettes E-Cigarette Details: vaporizer device Quit status (tobacco/nicotine): considering quitting Second hand smoke exposure: Yes Alcohol intake: former Substance/Drug Use: never Adopted: No Caregiver/support person: Yes (house keeper) Lives independently: Yes Household members: none Housing: Apartment Marital status: Marital status details: for 42 years Number of children: 2 Number of grandchildren: 6 Highest education level completed: GED or Equivalent service: No Current occupational status: disabled Pets and animals: Yes Pets & animals: dog(s) Pets & animal details: 1 [facility] Leisure activites: reading and other Leisure activities details: watches tv Sexually active: No Do you think of yourself as: Straight/Heterosexual Current gender identity: Female Shobha/Voodoo: Hoahaoism Special shobha needs: No Agree to transfusion: Yes Female Reproductive History: Para: 2 Spontaneous abortions: No Vitals/I&O/Wt Last Vital Signs Temp 98.2 F 03/18/23 11:41 Pulse 110 H 03/18/23 11:41 Resp 22 H 03/18/23 11:41 BP 109/62 03/18/23 11:41 Pulse Ox 91 03/18/23 11:41 O2 Del Method Nasal Cannula 03/18/23 11:41 O2 Flow Rate 15 03/18/23 01:07 03/17/23 03/18/23 03/18/23 22:59 06:59 14:59 Intake Total 50 / 50 Balance 50 / 50 Weight last 48 hrs Weight 300 lb Physical Exam Narrative: General : Patient is well developed , no acute distress, oriented x3 Head : Normal cephalic, a-traumatic. Ears : Pinnae and external canal are normal. Hearing is normal. Eyes : PERRLA, Sclera and injection are normal. No conjunctival discharge. Nose : Mucous membranes are without erythema. Throat : buccal mucosa is normal, gums are without significant recession or hypertrophy. Lungs : Equal chest rise bilaterally, no use of accessory muscles, trachea is midline. Cor : Rate and rhythm are normal. Abdomen : Soft, mild distention, tender to palpation over epigastrium and right upper quadrant, no g/r/m Extremities : No edema, no cyanosis or clubbing, dorsalis pedis pulses are present bilaterally, non-tender to palpation of calves. Upper extremities are normal bilaterally. Back : non-tender to palpation, no CVA tenderness. Neuro : CN II - XII intact, Upper and lower extremities have equal and full strength Data 03/18/23 00:03 03/18/23 00:03 Micro: Microbiology 03/18/23 10:52 Blood Culture - Preliminary Blood SPECIMEN COLLECTED 03/18/23 10:46 Blood Culture - Preliminary Blood SPECIMEN COLLECTED A&P Assessment and plan (1) Gallstone pancreatitis: (2) Choledocholithiasis: Plan Recommend transfer for ERCP. She will also need a cholecystectomy at some point in the near future. Medical management per hospitalist Coding Level of Care Code 49962 Diagnoses Gallstone pancreatitis K85.10 Choledocholithiasis K80.50
--- NOTE | 2023-03-18 14:36 | P.TS_ITS ---
Transfer Summary Providers Date of Admission: 03/18/23 04:01 Date of Discharge/Transfer: 03/18/23 Attending Provider at Admission: Zari Cabrera MD Attending Provider at Transfer: Nahid Rowland MD Consults: Surgery: Dr. Odell Primary Care Provider: Carla Smith DO Transfer Plans: Anticipated date of transfer: 03/18/23 . Diagnoses at Discharge Discharge Diagnosis (1) Gallstone pancreatitis: Status: Acute (2) Choledocholithiasis: Status: Acute (3) Cholecystitis: Status: Acute Reason for Visit Reason for Visit epigastric pain Hospital Course Hospital Course Neetu Herring is a 62 year old female who presents to the hospital with a 1 day history of epigastric abdominal pain that radiates to her back.? The pain is sharp severe and constant.? Eating and palpation make the pain worse.? Nothing seems to make the pain better.? She does report nausea but denies any emesis.? Denies any diarrhea, constipation, hematochezia and/or melena.? CT done in the ER showed inflammation around the duodenum pancreas and gallbladder.? Gallbladder ultrasound showed an area of gallbladder wall thickening and a common bile duct of 9 mm.? MRCP could not be performed overnight and therefore was performed this morning.? MRCP shows numerous calculi in the common bile duct.? Lipase is over 7000.? Bilirubin is within normal limits. Surgery was consulted. Given concerns for obstructive cholecystitis and pancreatitis patient was recommended for ERCP. As ERCP is not currently available at our facility transfer was sought. Patient is being transferred for further management in hemodynamically stable condition. Physical Exam Narrative: She is alert awake oriented x3, not in acute distress, morbidly obese and SOB at rest, which is her usual as per the patient. Chest clear to ascultation B/L CVS normal heart sounds, no murmurs. Abdomen soft, distended, tender diffusely but more in RUQ and epigastric area, diminished bowel sounds. Ext B/L lower extremity 1+ pitting edema present. Right foot and left lower leg eczema seen. TS Data Studies Completed and Pending Pending at discharge Category Date Time Status Blood Culture Stat Lab 03/18/23 10:52 Results Complete Blood Count w/Auto AM LABS Lab 03/19/23 04:00 Ordered Comprehensive Metabolic Panel AM LABS Lab 03/19/23 04:00 Ordered Folate Level AM LABS Lab 03/19/23 04:00 Ordered Hemoglobin A1C AM LABS Lab 03/19/23 04:00 Ordered Lipid Profile w/VLDL Routine Lab 03/19/23 04:00 Ordered Magnesium AM LABS Lab 03/19/23 04:00 Ordered PHOS [Phosphorus] AM LABS Lab 03/19/23 04:00 Ordered PHOS [Phosphorus] AM LABS Lab 03/20/23 04:00 Ordered PHOS [Phosphorus] AM LABS Lab 03/21/23 04:00 Ordered Labs from last 24 hours 03/18/23 03/18/23 03/18/23 00:27 00:03 00:03 WBC RBC Hgb Hct MCV MCH MCHC RDW Plt Count MPV Neut % (Auto) Lymph % (Auto) [place] % (Auto) Eos % (Auto) Baso % (Auto) Neut # (Auto) Lymph # (Auto) [place] # (Auto) Eos # (Auto) Baso # (Auto) Nucleated RBC % (auto) Nucleated RBCs # Sodium Potassium Chloride Carbon Dioxide Anion Gap BUN Creatinine GFR Calculation Glucose Calculated Osmolality Lactic Acid Calcium Iron 62 TIBC 311 % Saturation 19.9 L Unsat Iron Binding 249 Total Bilirubin AST ALT Alkaline Phosphatase Total Protein Albumin Globulin Lipase Procalcitonin 0.12 TSH 1.66 Urine Color Yellow Urine Appearance Clear Urine pH 5 Ur Specific [place] 1.025 Urine Protein 1+ H Urine Glucose (UA) Norm Urine Ketones Negative Urine Blood 2+ H Urine Nitrate Negative Urine Bilirubin 1+ H Urine Urobilinogen 1 H Ur Leukocyte Esterase Negative Urine RBC 5-10 H Urine WBC None Ur Squamous Epith Cells 5-10 H Amorphous Sediment Not Reportable Urine Bacteria Trace Urine Mucus 2+ 03/18/23 03/18/23 03/18/23 00:03 00:03 00:03 WBC 13.94 H RBC 4.55 Hgb 14.50 Hct 44.7 MCV 98.2 H MCH 31.9 MCHC 32.4 RDW 13.4 Plt Count 272 MPV 10.9 H Neut % (Auto) 85.2 Lymph % (Auto) 7.0 [place] % (Auto) 6.2 Eos % (Auto) 0.6 Baso % (Auto) 0.3 Neut # (Auto) 11.88 H Lymph # (Auto) 1.0 [place] # (Auto) 0.9 Eos # (Auto) 0.1 Baso # (Auto) 0.0 Nucleated RBC % (auto) 0 Nucleated RBCs # 0.0 Sodium 141 Potassium 3.6 Chloride 103 Carbon Dioxide 25 Anion Gap 16.6 BUN 16 Creatinine 0.6 GFR Calculation 101.0 Glucose 192 H Calculated Osmolality 298 H Lactic Acid 1.8 Calcium 9.3 Iron TIBC % Saturation Unsat Iron Binding Total Bilirubin 0.5 AST 103 H ALT 94 H Alkaline Phosphatase 135 H Total Protein 7.5 Albumin 4.2 Globulin 3.3 Lipase 7406 H Procalcitonin TSH Urine Color Urine Appearance Urine pH Ur Specific [place] Urine Protein Urine Glucose (UA) Urine Ketones Urine Blood Urine Nitrate Urine Bilirubin Urine Urobilinogen Ur Leukocyte Esterase Urine RBC Urine WBC Ur Squamous Epith Cells Amorphous Sediment Urine Bacteria Urine Mucus Completed Studies During Hospitalization Category Date Time Status CT abdomen pelvis w con* [id number] Stat Cat Scan 03/17/23 23:44 Completed CXRP [XR chest 1V portable [id number]] Stat Exams 03/18/23 00:08 Completed MR MRCP [id number] Routine MRI 03/18/23 08:31 Completed US gall bladder [id number] Stat Ultrasound 03/18/23 01:10 Completed Laboratory Last Values WBC 13.94 10^3/uL (3.29-11.43) H 03/18/23 00:03 RBC 4.55 10^6/uL (3.85-5.65) 03/18/23 00:03 Hgb 14.50 g/dL (11.27-16.99) 03/18/23 00:03 Hct 44.7 % (36-47) 03/18/23 00:03 MCV 98.2 fl (85-98) H 03/18/23 00:03 MCH 31.9 pg (27-33) 03/18/23 00:03 MCHC 32.4 g/dL (30-55) 03/18/23 00:03 RDW 13.4 % (12.1-15.1) 03/18/23 00:03 Plt Count 272 10^3/cmm (157-399) 03/18/23 00:03 MPV 10.9 fL (7.4-10.4) H 03/18/23 00:03 Neut % (Auto) 85.2 % 03/18/23 00:03 Lymph % (Auto) 7.0 % 03/18/23 00:03 [place] % (Auto) 6.2 % 03/18/23 00:03 Eos % (Auto) 0.6 % 03/18/23 00:03 Baso % (Auto) 0.3 % 03/18/23 00:03 Neut # (Auto) 11.88 10^3/uL (1.8-7.7) H 03/18/23 00:03 Lymph # (Auto) 1.0 10^3/uL (0.8-4.8) 03/18/23 00:03 [place] # (Auto) 0.9 10^3/uL (0.2-0.9) 03/18/23 00:03 Eos # (Auto) 0.1 10^3/uL (0.0-0.8) 03/18/23 00:03 Baso # (Auto) 0.0 10^3/uL (0.0-0.1) 03/18/23 00:03 Nucleated RBC % (auto) 0 % 03/18/23 00:03 Nucleated RBCs # 0.0 /100WBC 03/18/23 00:03 Sodium 141 mmol/L (136-145) 03/18/23 00:03 Potassium 3.6 mmol/L (3.5-5.1) 03/18/23 00:03 Chloride 103 mmol/L (98-107) 03/18/23 00:03 Carbon Dioxide 25 mmol/L (22-29) 03/18/23 00:03 Anion Gap 16.6 (5-19) 03/18/23 00:03 BUN 16 mg/dL (8-23) 03/18/23 00:03 Creatinine 0.6 mg/dL (0.5-0.9) 03/18/23 00:03 GFR Calculation 101.0 mL/min (90-130) 03/18/23 00:03 Glucose 192 mg/dL (65-115) H 03/18/23 00:03 Calculated Osmolality 298 mOsm/kg (285-295) H 03/18/23 00:03 Lactic Acid 1.8 mmol/L (0.5-2.2) 03/18/23 00:03 Calcium 9.3 mg/dL (8.5-10.5) 03/18/23 00:03 Iron 62 ug/dL (37-145) 03/18/23 00:03 TIBC 311 mcg/dl 10/19/23 00:03 % Saturation 19.9 % (20-50) L 03/18/23 00:03 Unsat Iron Binding 249 ug/dL (112-347) 03/18/23 00:03 Total Bilirubin 0.5 mg/dL (0.15-1.2) 03/18/23 00:03 AST 103 U/L (0-32) H 03/18/23 00:03 ALT 94 U/L (0-33) H 03/18/23 00:03 Alkaline Phosphatase 135 U/L (35-105) H 03/18/23 00:03 Total Protein 7.5 g/dL (6.6-8.7) 03/18/23 00:03 Albumin 4.2 g/dL (3.5-5.2) 03/18/23 00:03 Globulin 3.3 g/dL (1.3-4.6) 03/18/23 00:03 Lipase 7406 U/L (13-60) H 03/18/23 00:03 Procalcitonin 0.12 ng/mL (0-0.5) 03/18/23 00:03 TSH 1.66 uIU/mL (0.27-4.20) 03/18/23 00:03 Urine Color Yellow (Yellow) 03/18/23:27 Urine Appearance Clear (CLEAR) 03/18/23 00:27 Urine pH 5 (5-7) 03/18/23 00:27 Ur Specific [place] 1.025 (1.005-1.030) 03/18/23 00:27 Urine Protein 1+ (Negative) H 03/18/23 00: Urine Glucose (UA) Norm (Normal) 03/18/23 00: Urine Ketones Negative (Negative) 03/18/23 00: Urine Blood 2+ (Negative) H 03/18/23 00: Urine Nitrate Negative (Negative) 03/18/23 00: Urine Bilirubin 1+ (Negative) H 03/18/23 00:27 Urine Urobilinogen 1 mg/dL (Negative) H 03/18/23 00:27 Ur Leukocyte Esterase Negative (Negative) 03/18/23 00: Urine RBC 5-10 /hpf (0-2) H 03/18/23 00:27 Urine WBC None /hpf (0-5) 03/18/23 00:27 Ur Squamous Epith Cells 5-10 /hpf (0-5) H 03/18/23 00:27 Amorphous Sediment Not Reportable 03/18/23 00:27 Urine Bacteria Trace /hpf (NONE) 03/18/23 00:27 Urine Mucus 2+ /hpf 03/18/23 00:27 Radiology Impressions Abdomen/Pelvis CT 03/17/23 23:44 IMPRESSION: 1. Right upper quadrant free fluid and mild fat stranding as described, which may be due to cholecystitis or duodenitis, less likely pancreatitis given location. Advise correlation. Consider ultrasound gallbladder and GI consult. 2. No small bowel obstruction, abscess or free air. 3. Multiple chronic findings above. COMMENTS: Consistent with the [place]'s Incidental Findings Committee white paper (J Am Ayaka Radiol 2018): Any incidental renal lesion less than 1 cm or classified as too small to characterize, or any incidental cystic renal lesion characterized as simple-appearing, is likely benign. No follow-up imaging is recommended for these lesions per consensus recommendations based on imaging criteria. Chest X-Ray 03/18/23 00:08 IMPRESSION: 1. Chronic findings above, no consolidation or pneumothorax. 2. Abdomen/pelvis CT pending. Gallbladder Ultrasound 03/18/23 01:10 IMPRESSION: 1. Gallstones and gallbladder wall thickening with positive Zambrano sign. Cholecystitis is possible. 2. 9 mm dilated CBD. Follow with GI as well. 3. Liver is large and very fatty. 4. Minimal right nephrolithiasis. Recent Clincial Data Last Vital Signs Temp 98.2 F 03/18/23 11:41 Pulse 90 03/18/23 14:31 Resp 20 H 03/18/23 14:20 BP 109/62 03/18/23 11:41 Pulse Ox 93 03/18/23 14:20 O2 Del Method Nasal Cannula 03/18/23 14:20 O2 Flow Rate 2 03/18/23 14:20 Vital Signs Temp Pulse Resp BP Pulse Ox O2 Del Method O2 Flow Rate 03/18/23 14:31 90 03/18/23 14:20 88 20 H 93 Nasal Cannula 2 03/18/23 11:41 98.2 F 110 H 22 H 109/62 91 Nasal Cannula 03/18/23 08:14 101 H 03/18/23 08:04 96 20 H 85 L Room Air 03/18/23 07:19 98.4 F 101 H 21 H 143/82 91 Room Air 03/18/23 05:32 18 03/18/23 03:47 Room Air 03/18/23 03:20 98.1 F 88 16 138/83 95 Intake & Output/Weight 03/16/23 03/17/23 03/18/23 03/19/23 06:59 06:59 06:59 06:59 Intake Total 50 / 50 Balance 50 / 50 Weight 136.078 kg Vitals Last Vital Signs Temp 98.2 F 03/18/23 11:41 Pulse 90 03/18/23 14:31 Resp 20 H 03/18/23 14:20 BP 109/62 03/18/23 11:41 Pulse Ox 93 03/18/23 14:20 O2 Del Method Nasal Cannula 03/18/23 14:20 O2 Flow Rate 2 03/18/23 14:20 TS Medications Medications Albuterol Sulfate (Albuterol 2.5 Mg/3 Ml Neb) 2.5 mg INHALATION Q6H.RESP JEAN PIERRE Last Admin: 03/18/23 14:30 Dose: 2.5 mg Hydromorphone HCl (Hydromorphone 1 Mg/Ml Inj 1 Ml) 0.2 mg IVP Q2H PRN PRN Reason: PAIN Sodium Chloride (Sodium Chloride 0.9%) 1,000 mls @ 75 mls/hr IV .[id number] [facility] Last Admin: 03/18/23 05:21 Dose: 75 mls/hr Piperacillin Sod/Tazobactam (Sod 3.375 gm/ Sodium Chloride) 50 mls @ 12.5 mls/hr IV Q8H [facility]; Protocol Last Admin: 03/18/23 13:13 Dose: 12.5 mls/hr Ondansetron HCl (Ondansetron 2 Mg/Ml Sdv 2 Ml) 4 mg IVP Q8H PRN PRN Reason: vomiting, or N/V if npo Pantoprazole Sodium (Pantoprazole 40 Mg Sdv) 40 mg IVP Q12H [facility] Last Admin: 03/18/23 05:22 Dose: 40 mg Vitamin D (Cholecalciferol (Vitamin D3) 1,000 Unit Tablet) 2,000 unit PO DAILY [facility] Last Admin: 03/18/23 08:17 Dose: 2,000 unit Discontinued Medications Albuterol Sulfate (Albuterol 2.5 Mg/3 Ml Neb) 2.5 mg INHALATION 6XD PRN PRN Reason: shortness of breath or wheezing Hydromorphone HCl (Hydromorphone 1 Mg/Ml Inj 1 Ml) 1 mg IVP ONCE ONE Stop: 03/17/23 23:45 Last Admin: 03/17/23 23:56 Dose: 1 mg Hydromorphone HCl (Hydromorphone 1 Mg/Ml Inj 1 Ml) 0.4 mg IVP Q4H PRN PRN Reason: PAIN Last Admin: 03/18/23 10:27 Dose: 0.4 mg Piperacillin Sod/Tazobactam (Sod 3.375 gm/ Sodium Chloride) 50 mls @ 100 mls/hr IV ONCE ONE; Protocol Stop: 03/18/23 02:58 Last Infusion: 03/18/23 03:14 Dose: Infused Iohexol (Iohexol 350 Mg/Ml 500 Ml Btl (Per Ml)) 0 ml IV ONCE ONE Stop: 03/18/23 01:05 Last Admin: 03/18/23 01:04 Dose: 160 ml Ipratropium Emery (Ipratropium 0.5 Mg/2.5 Ml Neb) 0.5 mg INHALATION QID.RESPIRATORY JEAN PIERRE Lorazepam (Lorazepam 0.5 Mg Tablet) 0.5 mg PO ONCE ONE Stop: 03/18/23 11:13 Last Admin: 03/18/23 11:43 Dose: 0.5 mg Ondansetron HCl (Ondansetron 2 Mg/Ml Sdv 2 Ml) 4 mg IVP ONCE ONE Stop: 03/17/23 23:45 Last Admin: 03/17/23 23:56 Dose: 4 mg Simethicone (Simethicone 80 Mg Chew) 80 mg PO QID PRN PRN Reason: FLATULENCE Allergies codeine Allergy (Verified 03/18/23 08:19) Unknown oak Allergy (Verified 03/18/23 08:19) breathing concerns Home Medications cholecalciferol (vitamin D3) 25 mcg (1,000 unit) tablet (Vitamin D3) 1,000 unit PO Q7D 03/18/23 [History Confirmed 03/18/23] fexofenadine 60 mg tablet (Kierra Allergy) 120 mg PO QAM 03/18/23 [History Confirmed 03/18/23] glucosamine 750 [id number] no1 644 mg-C 30 mg-michael 1 mg tablet (Osteo Bi-Flex Triple Strength) 1 tab PO BID 03/18/23 [History Confirmed 03/18/23] ibuprofen 200 mg tablet 800 mg PO BID 03/18/23 [History Confirmed 03/18/23] ketotifen fumarate 0.025 % (0.035 %) eye drops (Allergy Eye (ketotifen)) 1 drp ophthalmic (eye) BID PRN Eye Irritation 03/18/23 [History Confirmed 03/18/23] Discharge Plan Discharge Patient Disposition: Home Condition: Stable Prescriptions: No Action Kierra Allergy 60 mg Tablet 120 mg PO QAM Allergy Eye (ketotifen) 0.025 % (0.035 %) Drops 1 drp OPHTHALMIC (EYE) BID PRN (Reason: Eye Irritation) Rx Instructions: administer at least 8 hours apart ibuprofen 200 mg Tablet 800 mg PO BID Osteo Bi-Flex Triple Strength 750 mg-644 mg- 30 mg-1 mg Tablet 1 tab PO BID Vitamin D3 25 mcg (1,000 unit) Tablet 1,000 unit PO Q7D Referrals: Carla Smith DO [Primary Care Provider] - Discharge Diet: As Directed Patient Instructions: Opioid Safety Transfer Attestations Time Spent in Transfer Care: greater than 30 min Status at Transfer: Cognitive status at transfer: cognitively intact ; Behavioral status at transfer: cooperative ; Functional status at transfer: other assisted ambulation ; Overall status at transfer: patient is not back to baseline Quality Metrics Clinical Quality Measures [ No reported AMI, CVA or VTE this stay] Coding Level of Care Code 82409 Total time (in minutes) for Discharge: 50 Diagnoses Gallstone pancreatitis K85.10 Choledocholithiasis K80.50 Cholecystitis K81.9
[2023-03-18] MEDS: HYDROmorphone 1 mg/mL INJ 1 mL 0.2 MG IVP ×2 (15:38→18:27)
--- NOTE | 2023-03-18 17:30 | PC.NURSE ---
EMS notified of pt transfer needs. Paperwork completed. Report called to Johnny chaudhry [facility] in [place], [place]. Pt is going to 6th floor room 6057.
== END 2023-03-18 18:20 | disposition short-term general hospital (02) | DRG 444 ==
LOC: ER 03-18 01:46 → MEDSURG 03-18 03:14
PROVIDERS: Admitting Provider Internal Medicine; Emergency Provider Emergency Medicine; PCP Family Medicine; Visit Provider Student in an Organized Health Care Education/Training Program
DX: K80.42 Calculus of bile duct with acute cholecystitis without obstruction (principal); K85.10 Biliary acute pancreatitis without necrosis or infection; F33.9 Major depressive disorder, recurrent, unspecified; K76.0 Fatty (change of) liver, not elsewhere classified; M79.7 Fibromyalgia; F17.210 Nicotine dependence, cigarettes, uncomplicated; F17.290 Nicotine dependence, other tobacco product, uncomplicated; J44.9 Chronic obstructive pulmonary disease, unspecified; I10 Essential (primary) hypertension; E03.9 Hypothyroidism, unspecified; F43.10 Post-traumatic stress disorder, unspecified; G47.30 Sleep apnea, unspecified; Z96.611 Presence of right artificial shoulder joint; Z96.643 Presence of artificial hip joint, bilateral
CPT/HCPCS: 36415; 71045; 74177; 74181; 76705; 80053; 81001; 83540; 83550; 83605; 83690; 84145; 84443; 85025; 87040; 93005; 94640; 96374; 96375; 99285; C9113; J1170; J2405; J2543; J7030; J7613; Q9967

== ENCOUNTER 2023-06-24 08:25 | Outpatient (CLI) | payer MEDICARE, MEDICAID, SELFPAY ==
[2021-12-18 13:56] VITALS: BP 105/68; BMI 54.3
--- NOTE | 2023-06-24 08:28 | MM_ITS ---
WS: [id number] SCREENING DIGITAL TOMOSYNTHESIS MAMMOGRAM WITH CAD HISTORY: SCREENING COMPARISON: 04/07/2017 Bilateral CC and MLO with tomosynthesis views submitted. Synthetic mammography reviewed. Computer aid ed detection analyzed. Breast composition: The breasts are almost entirely fatty. No suspicious masses, microcalcifications or architectural distortion. Numerous stable lymph nodes towards the axillary tails. IMPRESSION: MM/[place] [id number] BI-RADS: 1-Negative FOLLOW UP: 1 Year Follow-up
== END 2023-06-24 08:26 | disposition home or self-care (01) ==
LOC: RAD 08:25
PROVIDERS: PCP Family Medicine; Visit Provider Family Medicine
DX: Z12.31 Encounter for screening mammogram for malignant neoplasm of breast (principal)
CPT/HCPCS: 77063; 77067

== ENCOUNTER 2023-09-29 10:08 | Outpatient (CLI) | payer MEDICARE, MEDICAID, SELFPAY ==
[2021-12-18 13:56] VITALS: BP 105/68; BMI 54.3
--- NOTE | 2023-09-29 10:15 | USCV_ITS ---
Nima Neetu Age: 62 Gender: F : 1960 Exam Date: 09/29/2023 10:11 Ordering Phys: Olga Meraz Technologist: Uriel Vela [place]am [place] [facility] [place] Indication: LE Pain RIGHT LEFT Brachial 169.00 mmHg Brachial 144.00 mmHg Pressure (mmHg) Waveform Pressure (mmHg) Waveform 155.00 MANAGER PSYCHIATRY 148.00 142.00 DPA 148.00 0.84 Ankle/Brachial Index 0.88 130.00 Pre-Exercise Toe Pressure 0.77 Pre-Exercise Toe/Brachial Index FINDINGS LT toe pressure noncompressible . Resting RAEGAN of 0.84 on the right and 0.88 on the left Resting TBI of 0.77 on the right and could not be recorded on the left because of the noncompressibility CONCLUSIONS Minimally reduced resting RAEGAN bilaterally, suggesting mild peripheral arterial disease Noncompressible left toe pressure, possibly related to extensive arterial sclerosis Dr Shekhar Gonzalez MD [facility] (Electronically Signed) Final Date: 29 Sep 2023 21:47 S
== END 2023-09-29 10:09 | disposition home or self-care (01) ==
PROVIDERS: PCP Family Medicine; Visit Provider Nurse Practitioner Family
DX: E11.59 Type 2 diabetes mellitus with other circulatory complications (principal)
CPT/HCPCS: 93922

== ENCOUNTER → 2024-01-10 09:30 | Outpatient (BNVA) | payer MEDICARE, MEDICAID, SELFPAY ==
[2021-12-18 13:56] VITALS: BP 105/68; BMI 54.3
== END ==
PROVIDERS: PCP Family Medicine; Referring Provider Nurse Practitioner Family; Visit Provider Internal Medicine Cardiovascular Disease
DX: I73.9 Peripheral vascular disease, unspecified (principal); I10 Essential (primary) hypertension; Z71.6 Tobacco abuse counseling; I77.9 Disorder of arteries and arterioles, unspecified
CPT/HCPCS: 99204

== ENCOUNTER 2024-09-07 10:43 | Outpatient (CLI) | payer MEDICARE, MEDICAID, SELFPAY ==
[2021-12-18 13:56] VITALS: BP 105/68; BMI 54.3
--- NOTE | 2024-09-07 10:54 | MM_ITS ---
WS: [id number] BILATERAL SCREENING DIGITAL TOMOSYNTHESIS MAMMOGRAM WITH CAD HISTORY: SCREENING COMPARISON: 06/24/2023, 04/07/2017 Bilateral CC and MLO views with tomosynthesis and synthetic mammography submitted. Computer aided detection analyzed. Breast composition: The breasts are almost entirely fatty. No suspicious masses, microcalcifications or architectural distortion. MM/MM scr BI tomosynthesis [id number] IMPRESSION: BI-RADS: 1 - Negative. FOLLOW UP: 1 Year Follow-up
--- NOTE | 2024-09-07 10:54 | CT_ITS ---
WS: [id number] LDCT LUNG CANCER SCREENING TECHNIQUE: Noncontrast CT of the chest with coronal and sagittal reformatted images. CLINICAL INFORMATION: NICOTINE DEPENDENCE,CIGARETTES COMPARISON: 2020 DLP: 168.92 mGy.cm DIvol: Mean CTDIvol: 4.50 (mGy) All CT scans at [facility] use at least one of these dose optimization techniques: automated exposure control; mA and/or kV adjustment per patient size (includes targeted exams where dose is matched to clinical indication); or iterative reconstruction. FINDINGS: Mild chronic emphysematous changes. No new suspicious pulmonary parenchymal abnormalities. Aortic calcification. Calcified granuloma LEFT lower lobe. Tiny noncalcified nodule LEFT lower lobe. No mediastinal or hilar lymphadenopathy. No axillary lymphadenopathy. Small esophageal hiatal hernia. A few calcified granulomas. Calcified left left hilar nodes. CT/CT lung screening [id number] IMPRESSION: LUNG-RADS: 2-Benign Appearance or Behavior FOLLOW UP: 12 Month: Continue annual screening with LDCT
== END 2024-09-07 10:44 | disposition home or self-care (01) ==
LOC: RAD 10:44
PROVIDERS: PCP Family Medicine; Visit Provider Family Medicine
DX: Z12.31 Encounter for screening mammogram for malignant neoplasm of breast (principal); Z12.2 Encounter for screening for malignant neoplasm of respiratory organs; F17.210 Nicotine dependence, cigarettes, uncomplicated; R92.313 Mammographic fatty tissue density, bilateral breasts; J43.8 Other emphysema; I70.0 Atherosclerosis of aorta; J84.10 Pulmonary fibrosis, unspecified; K44.9 Diaphragmatic hernia without obstruction or gangrene; I89.8 Other specified noninfective disorders of lymphatic vessels and lymph nodes
CPT/HCPCS: 71271; 77063; 77067